=== PATIENT | female | born 1990 | race Caucasian/White ===

== ENCOUNTER → 2019-09-17 | Day surgery (SDC) | payer BC ==
[2019-09-13 15:49] LABS: BASOPHILS # (AUTO) 0.1 (0.0-0.1); BASOPHILS % 0.6 % (0.0-1.0); EOSINOPHILS # (AUTO) 0.3 (0.0-0.4); EOSINOPHILS % 2.9 % (0.0-6.0); HEMATOCRIT 45.7 % (34.2-44.1); LYMPHOCYTES % 30.2 % (18.0-39.1); MEAN CORPUSCULAR HEMOGLOBIN 29.4 pg (28-32); MEAN CORPUSCULAR HGB CONC 32.8 g/dL (31-35); MEAN CORPUSCULAR VOLUME 89.4 fL (81-99); MONOCYTES # (AUTO) 0.8 (0.2-0.8); MONOCYTES % 8.1 % (4.4-11.3); NEUTROPHILS # (AUTO) 5.7 (2.1-6.9); NEUTROPHILS % 57.9 % (38.7-80.0); PLATELET COUNT 339 x10e3/uL (140-360); RED BLOOD COUNT 5.11 x10e6/uL (3.6-5.1); RED CELL DISTRIBUTION WIDTH 12.8 % (11.7-14.4)
[2019-09-13 16:11] LABS: ALANINE AMINOTRANSFERASE 25 IU/L (0-55); ALBUMIN 4.1 g/dL (3.5-5.0); ALBUMIN/GLOBULIN RATIO 1.1 (0.8-2.0); ALKALINE PHOSPHATASE 62 IU/L (40-150); ANION GAP 13.8 mmol/L (8-16); BLOOD UREA NITROGEN 15 mg/dL (7-26); BUN/CREATININE RATIO 15 (6-25); CALCIUM 9.8 mg/dL (8.4-10.2); CARBON DIOXIDE 27 mmol/L (22-29); CHLORIDE 100 mmol/L (98-107); EST GLOMERULAR FILTRATION RATE > 60 ML/MIN (60-); GLUCOSE 90 mg/dL (74-118); POTASSIUM 3.8 mmol/L (3.5-5.1); SODIUM 137 mmol/L (136-145)
[~2019-09-17] MED LIST: ACETAMINOPHEN 1000 MG/100 ML IV ONE; AMLODIPINE BESY10 MG PO; BUPIVACAINE 0.25%/EPI 30ML SDV INJ ONE; BUPIVACAINE 0.5%/EPI 30 ML SDV INJ ONE; DEXAMETHASONE SOD PHOS INJ 4 MG/ML VIAL ONE; ESTROGENS CONJUGATED VAGINAL CR 45 GM TUBE PV ONE; FENTANYL CITRATE/PF 100MCG/2 ML INJ ONE; GLYCOPYRROLATE INJ 0.2 MG/ML VIAL ONE; LIDOCAINE HCL 2% JELLY 5 ML TUBE ONE; LIDOCAINE HCL 2% LOCAL INJ 5 ML SDV VIAL INJ ONE; LISINOPRIL-HCT1 EAC1 PO; MIDAZOLAM HCL 2 MG/2 ML VIAL ONE; NEOSTIGMINE 1 MG/ML 10ML VIAL ONE; ONDANSETRON HCL INJ 2MG/ML 2ML 2 MG/ML VIAL ONE; PROBIOTIC & AC1 EACH PO; PROPOFOL IV EMULSION 10 MG/ML 20 ML VIAL ONE; ROCURONIUM BROMIDE 10 MG/ML 5ML VIAL IV ONE; SEVOFLURANE INHAL SOLN 250 ML PEN BTL ONE; TESTOSTERO100 MG/1 M IM
[2019-09-17 11:40] VITALS: BP 120/81
--- NOTE | 2019-09-17 12:29 | Operative Report ---
DATE OF PROCEDURE: 09/17/2019 SURGEON: Roseline Trent MD SURGEON: Roseline Lane MD MECHANICAL FACILITIES TECHNICIAN: Kylah Cifuentes MD PREOPERATIVE DIAGNOSES: 1. Chronic pelvic pain. 2. Hereditary breast ovarian cancer syndrome. 3. Ovarian cyst. POSTOPERATIVE DIAGNOSES: 1. Chronic pelvic pain. 2. Hereditary breast ovarian cancer syndrome. 3. Ovarian cyst. PROCEDURES PERFORMED: Total laparoscopic hysterectomy with bilateral salpingo-oophorectomy. ANESTHESIA: General. ESTIMATED BLOOD LOSS: 50 mL. COMPLICATIONS: None. FINDINGS: Small anteverted uterus. No obvious areas of endometriosis noted on laparoscopy however, congested vessels throughout the pelvis, suspicious for pelvic congestion syndrome. Bilateral ovaries appeared within normal limits. Right ovary had small simple cyst. SPECIMENS: Included uterus with attached cervix, bilateral fallopian tubes and bilateral ovaries. INDICATIONS: The patient is a 28-year-old 0, female to male transgender, who was found to have a chronic pelvic pain, resistant to medical management as well as a hereditary breast and ovarian cancer syndrome. The patient desired definitive surgical management. Prior to operation, all risks, benefits, indications, and alternatives were discussed and consent was reconciled. PROCEDURE NOTE: The patient was brought to the operating room and properly identified. She was placed on the operating table in a dorsal supine position and general endotracheal anesthesia was induced by the anesthesiologist. The patient was repositioned to the dorsal lithotomy position in adjustable Bro stirrups and prepared and draped in typical sterile fashion. A time-out was performed. A weighted speculum was placed in the vagina with visualization of the cervix, which was grasped along the anterior lip with a single-tooth tenaculum, this facilitated placement of the VCare uterine manipulator followed by removal of the single-tooth and speculum. Attention was then turned to the laparoscopic portion of the procedure. The infraumbilical skin was infiltrated with 0.5% Marcaine with epinephrine and incised using a scalpel to create a 10 mm incision. A Veress needle was placed through this incision and the abdomen was insufflated with CO2 gas to a maximal pressure of 15 mmHg. A 10 mm port and laparoscope were then introduced through this incision with good visualization. The abdomen and pelvis were inspected with the above-noted findings. Secondary trocars were then placed in the left and right lower quadrants. After infiltration with Marcaine, both were placed under direct visualization with the laparoscope. After thorough inspection of the pelvis, both ureters were visualized and peristalsis noted. Their course was well away from the planned procedure. A LigaSure was introduced and used to coagulate and divide the left infundibulopelvic ligament, this incision was carried along the mesosalpinx to the broad ligament. The LigaSure was then used to coagulate and divide the left round ligament and this incision was continued along the anterior leaf of the broad ligament undermining and dividing the vesicouterine peritoneal reflection laterally to medially just to the right of midline. The posterior leaf of the broad ligament was then coagulated and divided to the level of the utero-ovarian ligament as well. Attention was then turned to the right infundibulopelvic ligament, which was likewise coagulated and divided with the LigaSure with continuation of this incision along the mesosalpinx down to the broad ligament. The right round ligament was then coagulated and divided, and the incision continued along the anterior leaf of the broad ligament undermining and dividing the vesicouterine peritoneal reflection with incision from the opposite side. The posterior leaf of the broad ligament was then coagulated and divided to the level of the utero-ovarian ligament. Both sharp and blunt dissection were then used to mobilize the bladder off the lower uterine segment, cervix and upper vagina. Both uterine vessels were skeletonized, coagulated, and divided with the LigaSure down to level of the internal cervical os. All pedicles were inspected and found to be hemostatic. The L-hook and the LigaSure was then advanced and used to create the colpotomy incision against the VCare cup. Uterus with attached adnexa was then delivered through the vagina without difficulty. The abdomen and pelvis were copiously irrigated with normal saline, and all pedicles were inspected and found to be hemostatic. The vaginal cuff was copiously irrigated and then closed with a running 0 Vicryl V-Loc suture. The vaginal cuff was inspected and again found to be hemostatic. A single piece of Surgicel was placed along the vaginal cuff. The umbilical port site was then removed under direct visualization and the incision was closed with 0 Vicryl suture via a Jarad Matt device. All remaining ports were then removed and the abdomen desufflated and all incisions were closed with 4-0 Monocryl and covered with Dermabond. The patient was awakened from anesthesia and extubated in the OR. The patient was authorized to be taken to the PACU in good condition. All sponge, lap, needle, and instrument counts were correct x2. The patient was stable at the completion of the procedure. MD LORETTA Rolle/RIDGE /[id number]
== END | disposition home or self-care (01) ==
LOC: OR 05:31
PROVIDERS: ATTEND Obstetrics & Gynecology Obstetrics
DX: N83.291 Other ovarian cyst, right side (principal); Q50.5 Embryonic cyst of broad ligament; N72 Inflammatory disease of cervix uteri; N88.8 Other specified noninflammatory disorders of cervix uteri; Z15.09 Genetic susceptibility to other malignant neoplasm; I10 Essential (primary) hypertension; K21.9 Gastro-esophageal reflux disease without esophagitis; F41.9 Anxiety disorder, unspecified; Z87.891 Personal history of nicotine dependence; Z01.810 Encounter for preprocedural cardiovascular examination; Z01.812 Encounter for preprocedural laboratory examination; Z11.59 Encounter for screening for other viral diseases
CPT/HCPCS: 36415 ×2; 58571; 80053; 84702 ×2; 85025; 86850 ×2; 86900 ×2; 87635; 88307; 93005; J0131; J1100; J2001 ×2; J2250; J2405; J2704; J2710; J3010